=== PATIENT | male | born 1940 | race Caucasian/White ===

== ENCOUNTER 2016-04-22 09:10 | Emergency (ER) | payer MEDICARE ==
[~2016-04-22] VITALS: Ht 175.3 cm; Wt 85.9 kg
[~2016-04-22 09:10] MED LIST: ASPI-973 PO; ATEN100T PO; ATOR40TA69 PO; CHOL200047 PO; FOLI1TAB18 PO; GABA600T2 PO; HYDR-4003 PO; LISI40TA PO; OMEG-38 PO; WARF4TAB6 PO
[2016-04-22 09:20] VITALS: BP 117/59; PULSE 66; RESP 16; O2SAT 96
[2016-04-22] MEDS ORDERED: 0.9% Sodium Chloride 1,000 ML IV ONE (09:31)
--- NOTE | 2016-04-22 09:36 | ED.REPORT ---
HPI-General Illness Date of Service Apr 22, 2016 ED Provider: Ana Jones MD 76 year old male with a hx of HTN, Afib, hyperlipidemia and diabetes presents to the ED from urgent care due to hypotension and Afib noted at urgent care. The patient was seen at urgent care due to abd pain, urinary hesitancy and dysuria for 2 days. He also reports decreased voiding over the last 4 days. He has mild abd pain in the groin area. While at urgent care this morning the patient was noted to be hypotensive (80/40) in Afib and was subsequently referred to the ED. Three months ago the patient was seen for Afib and cardioverted. He was then seen last month and was noted to be in NSR. In the last month he has had his Amlodipine increased from 5mg daily to 5mg twice daily due to uncontrolled hypertension. Pt has no history of BPH. PCP: Dr. Peace Nursing Notes Stated Complaint: HYPOTENSION Chief Complaint: Male Abdominal Pain Nursing Notes Reviewed: Yes Allergies: Coded Allergies: rosuvastatin (Verified Adverse Reaction, Intermediate, MUSCLE PAIN, 04/22/16 ) Scheduled Aspirin (Aspirin) 81 Mg Tablet 81 MG PO DAILY Atenolol (Atenolol) 100 Mg Tablet 100 MG PO DAILY Atorvastatin Calcium (Atorvastatin Calcium) 40 Mg Tablet 80 MG PO DAILY Cholecalciferol (Vitamin D3) (Vitamin D3) 2,000 Unit Capsule 2,000 UNIT PO DAILY Ciprofloxacin (Cipro) 500 Mg Tablet 500 MG PO BID Folic Acid (Folic Acid) 1 Mg Tablet 1 MG PO DAILY Gabapentin (Gabapentin) 600 Mg Tablet 600 MG PO TID [place]-3/Dha/Epa/Fish Oil (Fish Oil 1,000 mg Softgel) 1 Each Capsule 1 EACH PO DAILY Warfarin Sodium (Warfarin Sodium) 4 Mg Tablet 4 MG PO ,,,,, Warfarin Sodium (Warfarin Sodium) 4 Mg Tablet 2 MG PO WEDNESDAYS Scheduled PRN Hydrocodone-Acetaminophen 5-325 mg (Hydrocodone-Acetaminophen 5-325 mg) 1 Each Tablet 0.5-1 TABLET PO Q12H PRN PRN For Pain Lisinopril (Lisinopril) 40 Mg Tablet 40 MG PO HS PRN PRN HYPERtension General Time Seen by MD: 09:31 Chief Complaint Abdominal pain Hx Obtained From: Patient Arrived By: Walk-in Onset Occurred: Onset unknown Symptom Duration: Duration unknown Location: : Abdomen Quality: Painful Severity: Current: Mild Severity: Maximum: Mild Recent Healthcare: Recent doctor visit Past Medical History Past Medical History Melanoma, removed 12 years ago Aflutter Essential Hypertension Bilateral Carotid Bruits Diabetes Type II H/O Aortic Valve Replacement Neuropathy Hyperlipidemia Hypertension Reports: Coronary artery disease, Hyperlipidemia, Hypertension Reports: Atrial fibrillation Past Surgical History coronary artery bypass surgery x4 and aortic valve replacement in 2000. Family History noncontributory Smoking History Former Smoker Social History Alcohol Use: 1-3 per day Drug Use: Denies drug use Other Social History: Good social support, , Local resident Ambulatory Status Independent Review of Systems Full Review of Systems Constitutional: Denies: Fever Respiratory: Denies: Shortness of breath Cardiovascular: Denies: Chest pain, Palpitations GI: Reports: Abdominal pain Male: Reports Dysuria Complete sys rev & neg: except as marked. Physical Exam Bedside US: Post void residual is minimal 10-20cc. Vital Signs Vital Signs Date Time Temp Pulse Resp B/P Pulse Ox O2 Delivery O2 Flow Rate FiO2 04/22/16 13:27 18 125/64 98 Room Air 04/22/16 09:20 37.8 66 16 117/59 96 Room Air Initial VS: Reviewed General/Constitutional: Well-developed, Well-nourished Head / Eyes: Atraumatic, Normocephalic, PERRL ENT: Mucous membranes moist, Conjunctiva normal, No scleral icterus Neck: Supple, Full range of motion Extremities: Vascular intact, Neuro intact, No swelling (No edema), No tenderness Skin: Warm, Dry, No cyanosis Neurologic: Alert, Oriented, Nonfocal Psychiatric: Mood/affect normal, Behavior normal, Normal thought content General/Constitutional: Awake, Alert, Cooperative Respiratory / Chest: Breath sounds NL, Breath sounds = bilat, No respiratory distress, No rales, No rhonchi, No wheezing Cardiovascular: Heart rate NL, Regular rhythm, Heart sounds NL, Cap refill not delayed, Peripheral circulation NL Abdomen: Soft, Non-tender Neurologic: Oriented X3, Speech NL, No motor deficits cognitively intact. Interpretation & Diagnostics Lab Results Interpretation Result Diagram: 04/22/16 0946 04/22/16 0946 Test 04/22/16 09:46 White Blood Count 17.8th/mm3 (3.8-10.1) Red Blood Count 4.93mil/mm3 (4.40-5.80) Hemoglobin 15.5g/dL (13.8-17.2) Hematocrit 46.5% (41.0-50.0) Mean Corpuscular Volume 94.3fL (81-100) Mean Corpuscular Hemoglobin 31.4pg (27.0-35.0) Mean Corpuscular Hemoglobin Concent 33.3% (32.0-37.0) Red Cell Distribution Width 13.1% (12.3-15.4) Platelet Count 143bil/L (150-400) Neutrophils (%) (Auto) 81.3% (40-74) Lymphocytes (%) (Auto) 8.0% (14-46) Monocytes (%) (Auto) 10.3% (4-12) Eosinophils (%) (Auto) 0% (0-5) Basophils (%) (Auto) 0.2% (0-3) Prothrombin Time 22.1sec (8.1-12.5) Prothromb Time International Ratio 2.04ratio Hold Urine Received (Received) Sodium Level 138mEq/L (134-144) Potassium Level 3.6mEq/L (3.5-5.2) Chloride Level 96mEq/L (97-108) Carbon Dioxide Level 30mmol/L (18-29) Blood Urea Nitrogen 38mg/dL (8-27) Creatinine 1.55mg/dL (0.76-1.27) Estimat Glomerular Filtration Rate 46mL/min (>59) Glucose Level 161mg/dL (60-99) Calcium Level 9.5mg/dL (8.5-10.1) Magnesium Level 2.1mg/dL (1.6-2.6) Total Bilirubin 0.9mg/dL (0.0-1.2) Aspartate Amino Transf (AST/SGOT) 27U/L (0-50) Alanine Aminotransferase (ALT/SGPT) 32U/L (0-44) Alkaline Phosphatase 73U/L (25-160) Troponin T < 0.010ug/L (0.0-0.011) Total Protein 7.3g/dL (6.4-8.4) Albumin 3.9g/dL (3.4-5.0) General Lab Results Interp 1: Labs reviewed ECG Interpretation ECG Interpretation: Atrial fibrillation with a rate of 89. Otherwise normal. Time: 09:46 Interpreted by: ED physician X-Ray Chest Interpretation Chest Xray Interpretation: IMPRESSION: Bibasilar scars or atelectasis. Dictated by: Salvador Nicole M.D. on 04/22/2016 at 10:18 View: Portable, 1 view Interpretation / Wet Read by: Interpret - Radiologist Re-Eval/Medical Decision Med Decision/Clinical Course 12:00 reevaluated. Patient is up and quite literally doing laps around the emergency department. Labs reveal elevated white count strong suspicion for UTI. No evidence of cardiac events or pneumonia. We will start 2 g of IV ceftriaxone. No evidence of persistent hypotension. Suspect that the low blood pressures recorded were result of his medications rather than an indication of sepsis. Time of Eval: 12:10 Re-Evaluation/Progress Note: Pt up and walking around department. Updated pt of labs, ECG and imaging results. Discussed plan for discharge and follow up. All questions addressed. Discharge & Departure Primary Impression: UTI (urinary tract infection) Urinary tract infection type: site unspecified Hematuria presence: without hematuria Qualified Code: N39.0 - Urinary tract infection, site not specified Additional Impression: Hypotension, iatrogenic Ruled Out: Sepsis Disposition: Home Discharge Condition All VS Reviewed: Yes Condition: Improved Patient Instructions: Urinary Tract Infection in Men (ED) Additional Instructions: I'm very glad you came in today. You do have a significant bladder infection but do NOT have any indication of sepsis (bacteria spreading through your blood). You got IV antibiotics to start in the ER but will need another 7 days of Cipro am and pm The cipro prescription was electronically sent to [facility] For the low blood pressure I suspect you are a bit too much blood pressure medication. I want you to STOP the Chlorthalidone but continue all the others. Please take your blood pressure every other day and write down the numbers to review with your primary care doctor in about 2 weeks. Please call to schedule an apt in about 2 weeks. If you are getting worse- fever, nausea, vomiting, increased pain, confusion, almost passing out- please come back. Get better quickly!! Referrals: Demetris Rendon MD (PCP) Wilfrido Peace (Family) Scribe Attestation Portions of this note were transcribed by Danette Yin. I, (Dr. Jones) personally performed the history, physical exam and medical decision-making; I reviewed and confirmed the accuracy of the information in the transcribed note. Signed by: Danette Yin. 04/22/2016, 1126 copies to: Demetris Rendon MD; Wilfrido Peace Shawna L MD Apr 22, 2016 09:36 Brendan Ulloa Apr 22, 2016 10:07 Danette Yin Apr 22, 2016 11:05
[2016-04-22 09:59] LABS: BASOPHILS % (AUTO) 0.2 % (0-3); EOSINOPHILS % (AUTO) 0 % (0-5); MONOCYTES % (AUTO) 10.3 % (4-12); Mean Corpuscular Hemoglobin 31.4 pg (27.0-35.0); Mean Corpuscular Volume 94.3 fL (81-100); NEUTROPHILS % (AUTO) 81.3 % (40-74); Platelet Count 143 bil/L (150-400)
[2016-04-22 10:19] LABS: INR 2.04 ratio
--- NOTE | 2016-04-22 10:20 | DRSVH ---
PROCEDURE: X-RAY CHEST ONE VIEW, PORTABLE ([id number]) INDICATIONS: 76-year-old man with recurrent a fib. TECHNIQUE: One view of the chest was acquired. COMPARISON: [facility], CR, XR CHEST 1VW (PORTABLE), 10/25/2015, 10:33. FINDINGS: Surgical changes and devices: Sternotomy and CABG. Lungs and pleura: Bibasilar scars or atelectasis. No pleural effusions or pneumothorax. Mediastinum: Mediastinal contours appear normal. Heart size is normal. Bones and chest wall: No suspicious bony lesions. Overlying soft tissues appear unremarkable. IMPRESSION: Bibasilar scars or atelectasis. Dictated by: Salvador Nicole M.D. on 04/22/2016 at 10:18 Approved by: Salvador Nicole M.D. on 04/22/2016 at 10:18
[2016-04-22 10:39] LABS: Magnesium 2.1 mg/dL (1.6-2.6)
[2016-04-22 10:40] LABS: TROPONIN T < 0.010 ug/L (0.0-0.011)
[2016-04-22] MEDS ORDERED: cefTRIAXone Inj 2,000 MG in IV Premix 1 EACH IV ONE (12:15)
[2016-04-22] MEDS ORDERED: CIPR-231 PO (12:56)
[2016-04-22 13:27] VITALS: BP 125/64; RESP 18; O2SAT 98
== END 2016-04-22 13:28 | disposition home or self-care (01) ==
LOC: SED 09:10
DX: N39.0 Urinary tract infection, site not specified (principal); I95.89 Other hypotension; I25.10 Atherosclerotic heart disease of native coronary artery without angina pectoris; E11.40 Type 2 diabetes mellitus with diabetic neuropathy, unspecified; I10 Essential (primary) hypertension; E78.5 Hyperlipidemia, unspecified; Z85.820 Personal history of malignant melanoma of skin; Z87.891 Personal history of nicotine dependence; Z79.82 Long term (current) use of aspirin; Z79.01 Long term (current) use of anticoagulants; Z88.8 Allergy status to other drugs, medicaments and biological substances
CPT/HCPCS: 36415; 71010; 80053; 81002; 83735; 84484; 85025; 85610; 93005; 96361; 96365; 99285; G0463; J0696; J7030

== ENCOUNTER 2016-05-07 11:14 | Inpatient (IN) | payer MEDICARE ==
[~2016-05-07] VITALS: Ht 175.3 cm; Wt 83.8 kg
[2016-05-07] VITALS (9 sets, daily range): BP systolic 86–137; BP diastolic 43–61; PULSE 60–89; RESP 14–18; O2SAT 93–97
[~2016-05-07 11:14] MED LIST changes: +CIPR-231 PO
--- NOTE | 2016-05-07 11:43 | ED.REPORT ---
HPI-General Illness Date of Service May 07, 2016 ED Provider: Pa Novoa DO Patient is a 76 year old male on Warfarin who presents to the ED from urgent care complaining of lower abdominal pain onset 4 days ago. Associated symptoms include weakness, diarrhea (x4 a day, since starting abx), fever, cough. He denies testicular swelling, penile drainage, melena, hematochezia, runny nose, dysuria, or any other symptoms. He finished Cipro for a UTI on Wednesday night. Nursing Notes Stated Complaint: REFERRAL FROM CLINICS Chief Complaint: General Complaint Nursing Notes Reviewed: Yes Allergies: Coded Allergies: rosuvastatin (Verified Adverse Reaction, Intermediate, MUSCLE PAIN, 04/22/16 ) Scheduled Aspirin (Aspirin) 81 Mg Tablet 81 MG PO DAILY Atenolol (Atenolol) 100 Mg Tablet 100 MG PO DAILY Atorvastatin Calcium (Atorvastatin Calcium) 40 Mg Tablet 80 MG PO DAILY Cholecalciferol (Vitamin D3) (Vitamin D3) 2,000 Unit Capsule 2,000 UNIT PO DAILY Ciprofloxacin (Cipro) 500 Mg Tablet 500 MG PO BID Folic Acid (Folic Acid) 1 Mg Tablet 1 MG PO DAILY Gabapentin (Gabapentin) 600 Mg Tablet 600 MG PO TID [place]-3/Dha/Epa/Fish Oil (Fish Oil 1,000 mg Softgel) 1 Each Capsule 1 EACH PO DAILY Warfarin Sodium (Warfarin Sodium) 4 Mg Tablet 4 MG PO ,,,,, Warfarin Sodium (Warfarin Sodium) 4 Mg Tablet 2 MG PO WEDNESDAYS Scheduled PRN Hydrocodone-Acetaminophen 5-325 mg (Hydrocodone-Acetaminophen 5-325 mg) 1 Each Tablet 0.5-1 TABLET PO Q12H PRN PRN For Pain Lisinopril (Lisinopril) 40 Mg Tablet 40 MG PO HS PRN PRN HYPERtension General Time Seen by MD: 11:38 Chief Complaint Abdominal pain Hx Obtained From: Patient Arrived By: Walk-in Recent Healthcare: Recent doctor visit Past Medical History Past Medical History Melanoma, removed 12 years ago Aflutter Essential Hypertension Bilateral Carotid Bruits H/O Aortic Valve Replacement Neuropathy Hyperlipidemia Hypertension Reports: Coronary artery disease, Hyperlipidemia, Hypertension Reports: Atrial fibrillation Past Surgical History coronary artery bypass surgery x4 and aortic valve replacement in 1999. Family History noncontributory Smoking History Former Smoker Social History Alcohol Use: 1-3 per day Drug Use: Denies drug use Other Social History: Good social support, , Local resident Ambulatory Status Independent Review of Systems Full Review of Systems Constitutional: Reports: Fever, Malaise, Weakness - generalized Respiratory: Reports: Non-productive cough GI: Reports: Abdominal pain, Diarrhea, Denies: Hematochezia, Melena Male: Denies Dysuria, Denies Penile discharge, Denies Testicular swelling Allergy / Immune: Denies: Rhinorrhea Complete sys rev & neg: except as marked. Physical Exam Vital Signs Vital Signs Date Time Temp Pulse Resp B/P Pulse Ox O2 Delivery O2 Flow Rate FiO2 05/07/16 14:41 39.4 89 137/55 95 Room Air 05/07/16 12:32 74 114/52 97 Room Air 05/07/16 11:18 38.4 77 15 130/61 95 Initial VS: Reviewed Head / Eyes: Atraumatic, Normocephalic Neck: Full range of motion Respiratory: No respiratory distress Skin: Warm, Dry Neurologic: Alert, Oriented, Nonfocal Psychiatric: Mood/affect normal, Behavior normal, Normal thought content General/Constitutional: Awake, Alert, Well appearing, Well developed Febrile Tenderness/Guarding/Rebound: Positive: Tender LLQ... (Mild) Mild rebound Back: No CVA tenderness Interpretation & Diagnostics Lab Results Interpretation Test 05/07/16 15:13 Hold Urine Received (Received) CT Abd / Pelvis Interpretation IMPRESSION: 1. Short segment, circumferential wall thickening with adjacent mesenteric inflammation involving the distal transverse colon. Findings compatible with nonspecific colitis. Differential diagnosis includes infectious/inflammatory, ischemic and neoplastic etiologies. 2. A few, very small, locules of air in the liver which may localize to the biliary or portal venous systems. 3. Small hiatal hernia. 4. Findings telephoned to Dr. Pa Novoa on 05/07/2016 at 1417 hrs. Dictated by: Vy Menendez MD, PhD on 05/07/2016 at 14:21 Approved by: Vy Menendez MD, PhD on 05/07/2016 at 14:21 Study type: Abdominal CT IV contrast Interpretation / Wet Read by: Interpret - Radiologist Re-Eval/Medical Decision Med Decision/Clinical Course Sepsis and colitis with air in the liver, surgery is consulted for this, IV Zosyn and oral vancomycin will be given. Given the fever leukocytosis and findings on CAT scan he will be admitted. Stool PCR was ordered. Time of Eval: 15:00 Re-Evaluation/Progress Note: Discussed desire fro admission. Patient understands and agrees with plan. All questions addressed at this time. Consultation #1: Referral / Consult Name: Nicholas Trejo MD Consulted With: Surgeon Call Returned at: 14:51 Malware Analyst: Will see patient Note: Discussed patient's case. Will see patient and consult. Consultation #2: Referral / Consult Name: Hali Watson MD Consulted With: Hospitalist Call Returned at: 15:13 Malware Analyst: Will see patient, Agrees with eval, Agrees with plan, Accepts admit Note: Discussed patient's case. Accepts admit. Counseled Regarding: Diagnosis, Lab results, Need for admission Discharge & Departure Primary Impression: Sepsis Additional Impression: Colitis Disposition: ADMITTED TO HOSPITAL Referrals: Demetris Rendon MD (PCP) Wilfrido Peace (Family) Scribe Attestation Portions of this note were transcribed by Janell Florentino. I, Dr. Novoa personally performed the history, physical exam and medical decision-making; I reviewed and confirmed the accuracy of the information in the transcribed note. Signed by: Janell Florentino 05/07/16, 1518 copies to: Demetris Rendon MD, Timothy S DO May 07, 2016 11:43 JANELL FLORENTINO May 07, 2016 11:57
[2016-05-07] MEDS ORDERED: 0.9% Sodium Chloride 1,000 ML IV ONE (11:55)
--- NOTE | 2016-05-07 14:23 | DRSVH ---
PROCEDURE: CT ABDOMEN AND PELVIS WITH CONTRAST ([id number]) INDICATIONS: llq pain, fever, wbc 17k TECHNIQUE: After the administration of intravenous contrast, 5 mm thick sections acquired from the diaphragm to the symphysis. 5 mm coronal and sagittal reformats were acquired. For radiation dose reduction, the following was used: automated exposure control, adjustment of mA and/or kV according to patient siz e. COMPARISON: None. FINDINGS: Image quality: Excellent. ABDOMEN: Lung bases: Lung bases are clear. Heart size is normal. Postsurgical changes compatible prior CABG procedure noted. Mitral annulus calcifications are noted. Solid organs: Liver and spleen are normal in size and enhancement. A few, very small, locules of air are noted in the liver (series 2, image 15; series 2, image 10-11. Is not clear whether the air locu les are within the portal venous system or the biliary system. Gallbladder is contracted. Biliary s ystem is non dilated. Pancreas enhances normally. No adrenal nodules. Kidneys demonstrate normal s ize and enhancement, without hydronephrosis. Small right renal cyst is noted. Peritoneum and bowel: Small hiatal hernia is noted. Short segment, circumferential wall thickening i nvolving the distal transverse colon mainly proximal to the splenic flexure is noted. Mild stranding is noted in the mesocolon in the region of transverse colon wall thickening. No free fluid or air. Th e appendix is normal. Nodes and vessels: No retroperitoneal or mesenteric adenopathy by size criteria. Aorta and inferior vena cava are normal in size. Scattered atherosclerotic calcifications are noted in the abdominal an d pelvic vasculature. Miscellaneous: No ventral hernias. PELVIS: Genitourinary: Bladder wall thickness is normal. Miscellaneous: No inguinal hernias or adenopathy. Bones: No suspicious bony lesions. No vertebral body compression fractures. IMPRESSION: 1. Short segment, circumferential wall thickening with adjacent mesenteric inflammation involving the distal transverse colon. Findings compatible with nonspecific colitis. Differential diagnosis includ es infectious/inflammatory, ischemic and neoplastic etiologies. 2. A few, very small, locules of air in the liver which may localize to the biliary or portal venous systems. 3. Small hiatal hernia. 4. Findings telephoned to Dr. Pa Novoa on 05/07/2016 at 1417 hrs. Dictated by: Vy Menendez MD, PhD on 05/07/2016 at 14:21 Approved by: Vy Menendez MD, PhD on 05/07/2016 at 14:21
[2016-05-07] MEDS: 0.9% Sodium Chloride 1,000 ML IV SCH ×2 (15:08→15:55)
[2016-05-07] MEDS ORDERED: Vancomycin 125 mg Oral Capsule PO ONE (15:20)
[2016-05-07] MEDS ORDERED: Ondansetron 2 mg/mL 2 mL Inj IVPUSH PRN (15:55)
[2016-05-07] MEDS ORDERED: WARFARIN SODIUM 2 MG PO SCH (16:05)
--- NOTE | 2016-05-07 16:20 | PCM.HPMED ---
Subjective Date of Service May 07, 2016 Primary Provider: Admitting Physician: Primary Care Physician: Demetris Rendon MD Attending Physician: Admit Status: From the Emergency Department, Full Admit, Admit to [facility] Team, Remote Telemetry Chief Complaint: Lower abdominal pain over 4 days. He also has had diarrhea 4 times daily. History of Present Illness: Lower abdominal pain over 4 days. He also has had diarrhea 4 times daily. He was on Cipro antibiotic for urinary tract infection and finishes up recently. He does admit to some fevers and chills. He notes no prior history of GI issues. No history of inflammatory bowel disease. He denies any blood in his stool. He denies any nausea or vomiting. He denies any sick contact exposure. His evaluation apparently in urgent care revealed an elevated white count of about 20,000. He did have a CT scan done in the emergency room here which revealed: Review of Systems: Other review of systems are reviewed and are negative except for as in history of present illness Allergies Coded Allergies: rosuvastatin (Verified Adverse Reaction, Intermediate, MUSCLE PAIN, 04/22/16 ) Home Medications Aspirin (Aspirin) 81 Mg Tablet 81 MG PO DAILY Atenolol (Atenolol) 100 Mg Tablet 100 MG PO DAILY Atorvastatin Calcium (Atorvastatin Calcium) 40 Mg Tablet 80 MG PO DAILY Cholecalciferol (Vitamin D3) (Vitamin D3) 2,000 Unit Capsule 2,000 UNIT PO DAILY Ciprofloxacin (Cipro) 500 Mg Tablet 500 MG PO BID Folic Acid (Folic Acid) 1 Mg Tablet 1 MG PO DAILY Gabapentin (Gabapentin) 600 Mg Tablet 600 MG PO TID [place]-3/Dha/Epa/Fish Oil (Fish Oil 1,000 mg Softgel) 1 Each Capsule 1 EACH PO DAILY Warfarin Sodium (Warfarin Sodium) 4 Mg Tablet 4 MG PO ,,,,,SA Warfarin Sodium (Warfarin Sodium) 4 Mg Tablet 2 MG PO WEDNESDAYS PMH Melanoma, removed 12 years ago Aflutter Essential Hypertension Bilateral Carotid Bruits H/O Aortic Valve Replacement Neuropathy Hyperlipidemia Hypertension Reports: Coronary artery disease, Hyperlipidemia, Hypertension Reports: Atrial fibrillation Surgical History coronary artery bypass surgery x4 and aortic valve replacement in 1999. Family History No history of any GI diseases Social History Hx Alcohol Use: Yes (FEW/DAY) Hx Substance Use: No Smoking Status: Former Smoker Living Arrangement: with Family Exam Vital Signs Vital Sign - Last Date Time Temp Pulse Resp B/P Pulse Ox O2 Delivery O2 Flow Rate FiO2 05/07/16 14:41 39.4 89 137/55 95 Room Air 05/07/16 11:18 15 Exam Constitutional: Elderly man in no acute distress Head: Normocephalic atraumatic Neck: No adenopathy Chest: Clear to auscultation Cor: Irregular regular rate and rhythm S1-S2 Abdomen: Slightly distended, soft mild diffuse tenderness up to doing a lower quadrants no rebound no guarding Extremity exam: No pedal edema Skin: No rashes Psych: Mood and affect appropriate Neuro: Alert and oriented 3, motor strength is intact bilaterally Lab and Diagnostics Labs Ordered and pending at the time of this dictation X-Rays, CTs and MRIs PROCEDURE: CT ABDOMEN AND PELVIS WITH CONTRAST ([id number]) INDICATIONS: llq pain, fever, wbc 17k TECHNIQUE: After the administration of intravenous contrast, 5 mm thick sections acquired from the diaphragm to the symphysis. 5 mm coronal and sagittal reformats were acquired. For radiation dose reduction, the following was used: automated exposure control, adjustment of mA and/or kV according to patient size. COMPARISON: None. FINDINGS: Image quality: Excellent. ABDOMEN: Lung bases: Lung bases are clear. Heart size is normal. Postsurgical changes compatible prior CABG procedure noted. Mitral annulus calcifications are noted. Solid organs: Liver and spleen are normal in size and enhancement. A few, very small, locules of air are noted in the liver (series 2, image 15; series 2, image 10-11. Is not clear whether the air locules are within the portal venous system or the biliary system. Gallbladder is contracted. Biliary system is non dilated. Pancreas enhances normally. No adrenal nodules. Kidneys demonstrate normal size and enhancement, without hydronephrosis. Small right renal cyst is noted. Peritoneum and bowel: Small hiatal hernia is noted. Short segment, circumferential wall thickening involving the distal transverse colon mainly proximal to the splenic flexure is noted. Mild stranding is noted in the mesocolon in the region of transverse colon wall thickening. No free fluid or air. The appendix is normal. Nodes and vessels: No retroperitoneal or mesenteric adenopathy by size criteria. Aorta and inferior vena cava are normal in size. Scattered atherosclerotic calcifications are noted in the abdominal and pelvic vasculature. Miscellaneous: No ventral hernias. PELVIS: Genitourinary: Bladder wall thickness is normal. Miscellaneous: No inguinal hernias or adenopathy. Bones: No suspicious bony lesions. No vertebral body compression fractures. IMPRESSION: 1. Short segment, circumferential wall thickening with adjacent mesenteric inflammation involving the distal transverse colon. Findings compatible with nonspecific colitis. Differential diagnosis includes infectious/inflammatory, ischemic and neoplastic etiologies. 2. A few, very small, locules of air in the liver which may localize to the biliary or portal venous systems. 3. Small hiatal hernia. 4. Findings telephoned to Dr. Pa Novoa on 05/07/2016 at 1417 hrs. Dictated by: Vy Menendez MD, PhD on 05/07/2016 at 14:21 Approved by: Vy Menendez MD, PhD on 05/07/2016 at 14:21 12-lead ECG Pending at the time of this dictation Assessment & Plan # Acute abdominal pain with diarrhea and colitis on CT scan, present on admission, acute - Does meet criteria for sepsis with elevated white count and febrile - We will treat with IV Zosyn - Check stool studies along with stool PCR is may be C. difficile given recent antibiotic treatment - General surgery also consult and given the findings of the biliary tree. Dr. Trejo felt that that was most likely nonsignificant findings and recommended treating with antibiotics and checking stool studies. - Await blood work results will also check a lactic acid. # History of A. fib flutter Placed on monitor Continue with warfarin and pharmacy to monitor #. Hypertension, chronic, present on admission We will hold lisinopril for now # DVT prophylaxis Patient is on oral Coumadin # CODE STATUS Patient is full code Pain Evaluation: Adequate Pain Control VTE Prophylaxis: Sub-Q Enoxaparin Resuscitation Status: CPR: Attempt Resuscitation Time spent 60 minutes Hali Watson MD May 07, 2016 16:20
[2016-05-07] MEDS ORDERED: HYDROcodone-APAP 5-325 mg Tablet PO PRN (16:40)
[2016-05-07] MEDS ORDERED: KLO5T PO (16:57)
[2016-05-07] MEDS ORDERED: AMLO5TAB2 PO (16:57)
[2016-05-07 17:02] LABS: APPEARANCE,URINE CLEAR (CLEAR,HAZY); COLOR,URINE YELLOW (YELLOW); PH,URINE 5.5 (5.0-8.0)
[2016-05-07 17:03] LABS: OCCULT BLOOD,URINE MODERATE (NEGATIVE); UROBILINOGEN,URINE NORMAL (NORMAL)
--- NOTE | 2016-05-07 17:15 | NUR ---
Admit Pt admitted to floor. Pt transferred from wheelchair to bed. A&0x3, currently denies pain (recently received Hudson). Will continue to monitor. Addendum: 05/07/16 at 1924 by PAM BAKER RN Unable to finish admit assessments. Pass off given to [facility] shift lead.
--- NOTE | 2016-05-07 18:05 | CONS ---
[address] [address] CONSULTATION REPORT PATIENT: CHACE NAPIER : 1940 MR#: [id number] ADMIT: 05/07/2016 JOB ID: [id number] DATE OF SERVICE: 05/07/2016 CHIEF COMPLAINT/IDENTIFICATION: Dr. Novoa has asked me to see this 76-year-old man regarding question of portal venous gas. HISTORY OF PRESENT ILLNESS: The patient presented with shaking chills and symptoms including weakness, diarrhea, fever, and cough. He had an outpatient CT scan at [facility] and was sent to the emergency department due to a question of portal venous gas. He has no history of chronic GI complaints but has been on ciprofloxacin recently for a UTI. He denies chronic abdominal pain or for any significant GI symptomatology. PAST MEDICAL HISTORY: History of melanoma, atrial fibrillation, hypertension. Known carotid artery disease with plans for a carotid endarterectomy with his blood pressure is well controlled. He is status post aortic valve replacement. History of hypertension. Coronary artery bypass x4. Aortic valve replacement in 1999. MEDICATIONS: Including aspirin, atenolol, atorvastatin, ciprofloxacin, folic acid, gabapentin, warfarin. ALLERGIES: ROSUVASTATIN. SOCIAL HISTORY: Positive daily alcohol. Negative current tobacco use, ex-smoker stopped in 1981. Lives with family. REVIEW OF SYSTEMS: Per admission history and physical. FAMILY HISTORY: Per admission history and physical. PHYSICAL EXAMINATION: Elderly man appearing quite active and in good spirits. He is shivering a bit. His temperature is 39.4, pulse is 89. His blood pressure is 137/55. He appears nontoxic. Abdomen is tender in the mid abdomen to deep palpation. No peritoneal signs. LABORATORY DATA: His white count by report is elevated, though I do not have these as the labs were done at Urgent Care. IMAGING: I have had the opportunity to review the images and the report. I concur that there is what appears to be thickened bowel in the distal transverse colon, and I also think that the cecum may be thickened. There is the tiniest bit of gas in what is presumably the portal venous system as the patient has an intact gallbladder. IMPRESSION AND PLAN: A 76-year-old man with multiple medical comorbidities who presents with fever and infectious symptoms with colon abnormalities consistent with C. difficile colitis or some other type of colitis. I suspect that the most likely diagnosis is C. difficile colitis related to his recent use ciprofloxacin for a urinary tract infection. Regarding this issue of gas in the liver, I do not think this would affect how he is managed. He does not have an acute surgical abdomen and there is no indication for surgery. He should be treated for whatever his primary process is, with the realization that if he initially responds but then seems to deteriorate with a process that is consistent with infectious disease, the consideration of a delayed liver abscess needs to be taken into account. However, at this point I would not manage him any differently or image him any differently down the road based on this finding of a few small bubbles of gas in the liver. I will see him again in followup in two days, but will not ask anybody else from the department to see him tomorrow.
[2016-05-07] MEDS: Piperacillin-Tazo 3.375 Gm Inj 3.375 GM in Dextrose 5% Minibag Plus 50 ML IV SCH (18:20)
[2016-05-07 21:24] LABS: BASOPHILS % (AUTO) 0.1 % (0-3); EOSINOPHILS % (AUTO) 0.2 % (0-5); MONOCYTES % (AUTO) 9.1 % (4-12); Mean Corpuscular Hemoglobin 30.6 pg (27.0-35.0); Mean Corpuscular Volume 94.4 fL (81-100); NEUTROPHILS % (AUTO) 79.8 % (40-74); Platelet Count 174 bil/L (150-400)
[2016-05-07 21:42] LABS: INR 1.58 ratio
--- NOTE | 2016-05-07 22:01 | NUR ---
Admission Pt able to provided answer for H&P. Oriented to room and use of call light. Med reconciliation done by nurse earlier.
[2016-05-07 22:10] LABS: TROPONIN T 0.01 ug/L (0.0-0.011)
--- NOTE | 2016-05-07 22:29 | PCM.CONPHA ---
Subjective Date of Service: May 07, 2016 Lower abdominal pain over 4 days. He also has had diarrhea 4 times daily. Reason for Pharmacy Consult: Anticoagulation Management Objective Vital Signs Date Time Temp Pulse Resp B/P Pulse Ox O2 Delivery O2 Flow Rate FiO2 05/07/16 22:06 64 05/07/16 22:03 67 05/07/16 20:07 80 99/52 05/07/16 19:45 37.4 60 18 86/43 93 Room Air 05/07/16 17:57 82 05/07/16 17:28 38.8 82 14 120/48 95 Room Air 05/07/16 14:41 39.4 89 137/55 95 Room Air 05/07/16 12:32 74 114/52 97 Room Air 05/07/16 11:18 38.4 77 15 130/61 95 Weight (Kilograms): 79.09 Height (Feet): 5 Height (Inches): 9.00 Test 05/07/16 15:13 05/07/16 16:17 05/07/16 21:13 Hold Urine Received (Received) Urine Color Yellow (YELLOW) Urine Appearance Clear (CLEAR,HAZY) Urine pH 5.5 (5.0-8.0) Urine Specific [place] 1.010 (1.003-1.035) Urine Protein Negativemg/dL (NEG,TRACE) Urine Glucose (UA) Negativemg/dL (NEGATIVE) Urine Ketones Negativemg/dL (NEGATIVE) Urine Occult Blood Moderate (NEGATIVE) Urine Nitrite Negative (NEGATIVE) Urine Bilirubin Negative (NEGATIVE) Urine Urobilinogen Normalmg/dL (NORMAL) Urine Leukocyte Esterase Negative (NEGATIVE) Urine RBC 0-2/hpf (0-2) Urine WBC 0-5/hpf (0-5) Urine Epithelial Cells Few/hpf (NONE-MOD) Urine Crystals None seen (NONE SEEN) Urine Bacteria Few/hpf (NONE-FEW) Urine Hyaline Casts None/lpf (NONE) Urine Granular Casts None seen (NONE SEEN) Urine Waxy Casts None seen (NONE SEEN) Urine Red Blood Cell Casts None seen (NONE SEEN) Urine White Blood Cell Casts None seen (NONE SEEN) Urine Mucus None seen (None Seen) Urine Trichomonas None seen (NONE SEEN) Urine Yeast None (NONE SEEN) Urinalysis Comment None Urine Culture Reflexed Not indicated White Blood Count 14.4th/mm3 (3.8-10.1) Red Blood Count 4.44mil/mm3 (4.40-5.80) Hemoglobin 13.6g/dL (13.8-17.2) Hematocrit 41.9% (41.0-50.0) Mean Corpuscular Volume 94.4fL (81-100) Mean Corpuscular Hemoglobin 30.6pg (27.0-35.0) Mean Corpuscular Hemoglobin Concent 32.5% (32.0-37.0) Red Cell Distribution Width 13.4% (12.3-15.4) Platelet Count 174bil/L (150-400) Neutrophils (%) (Auto) 79.8% (40-74) Lymphocytes (%) (Auto) 10.4% (14-46) Monocytes (%) (Auto) 9.1% (4-12) Eosinophils (%) (Auto) 0.2% (0-5) Basophils (%) (Auto) 0.1% (0-3) Prothrombin Time 17.1sec (8.1-12.5) Prothromb Time International Ratio 1.58ratio Sodium Level 135mEq/L (134-144) Potassium Level 3.7mEq/L (3.5-5.2) Chloride Level 98mEq/L (97-108) Carbon Dioxide Level 24mmol/L (18-29) Blood Urea Nitrogen 20mg/dL (8-27) Creatinine 1.06mg/dL (0.76-1.27) Estimat Glomerular Filtration Rate 72mL/min (>59) Glucose Level 156mg/dL (60-99) Lactic Acid Level 1.7mmol/L (0.4-2.0) Calcium Level 8.3mg/dL (8.5-10.1) Total Bilirubin 0.8mg/dL (0.0-1.2) Aspartate Amino Transf (AST/SGOT) 29U/L (0-50) Alanine Aminotransferase (ALT/SGPT) 45U/L (0-44) Alkaline Phosphatase 78U/L (25-160) Troponin T 0.010ug/L (0.0-0.011) Total Protein 6.7g/dL (6.4-8.4) Albumin 3.6g/dL (3.4-5.0) Assessment/Plan Assessment/Plan Warfarin per Rx Indication: A-Fib INR Goal: 2-3 INR today (drawn at 5): 1.58 No dose given as pt had already taken today's dose prior to admission Daily INR ordered Kei Gunderson PharmD May 07, 2016 22:29
[2016-05-08] VITALS (7 sets, daily range): BP systolic 95–144; BP diastolic 48–68; PULSE 82–98; RESP 16–20; O2SAT 94–97
[2016-05-08] MEDS: Piperacillin-Tazo 3.375 Gm Inj 3.375 GM in Dextrose 5% Minibag Plus 50 ML IV SCH ×3 (00:45→17:19)
[2016-05-08] MEDS: 0.9% Sodium Chloride 1,000 ML IV SCH ×6 (00:45→20:45)
--- NOTE | 2016-05-08 01:00 | NUR ---
Transfer Pt transferred to room with 1028 with all belongings, charts and meds. Report given to [facility] RN. Pt made aware of need to transfer with understanding noted.
--- NOTE | 2016-05-08 04:57 | NUR ---
activity pt has been sleeping since transferred to [facility]. he has no complaints of nausea or pain at this time. "I just want to be left to sleep until lunch". VSS and afebrile. stool sample still needed but he has had no BM yet. care continues.
[2016-05-08] MEDS: Omega-3 Fatty Acids 1,000 mg Capsule PO SCH (08:30)
[2016-05-08 09:54] LABS: BASOPHILS % (AUTO) 0.1 % (0-3); EOSINOPHILS % (AUTO) 0.3 % (0-5); MONOCYTES % (AUTO) 7.4 % (4-12); Mean Corpuscular Hemoglobin 30.8 pg (27.0-35.0); Mean Corpuscular Volume 94.1 fL (81-100); NEUTROPHILS % (AUTO) 83.2 % (40-74); Platelet Count 143 bil/L (150-400)
[2016-05-08 10:08] LABS: INR 1.46 ratio
[2016-05-08 10:32] LABS: TROPONIN T < 0.010 ug/L (0.0-0.011)
[2016-05-08] MEDS: Vancomycin 125 mg Oral Capsule PO SCH ×2 (15:22→21:01)
--- NOTE | 2016-05-08 18:35 | PCM.PNMED ---
Subjective Date of Service May 08, 2016 Subjective Patient was examined at bedside today. Patient denies any chest pain, shortness of breath, nausea, vomiting. Patient is currently doing well and complains only of abdominal pain and diarrhea. Exam Vital Signs Vital Sign - Last Date Time Temp Pulse Resp B/P Pulse Ox O2 Delivery O2 Flow Rate FiO2 05/08/16 14:38 38.6 90 16 123/61 95 Room Air Intake and Output 05/07/16 05/07/16 05/08/16 Cumulative From/Thru 15:00 23:00 07:00 05/07/16 11:18 - 05/08/16 06:55 Intake Total 1000 ml 0 ml 1000 ml Balance 1000 ml 0 ml 1000 ml Intake Oral 0 ml 0 ml IV Total 1000 ml 1000 ml # Voids 4 4 # Bowel Movements 0 0 Exam Physical Exam: GEN: Patient was awake, alert, responding appropriately to questions HEENT: PERRLA, EOMI, Neck soft supple, trachea midline, nomocephalic/atraumatic CV: +S1/S2, RRR, positive murmur secondary to valve replacement Respiratory: CTAB, no wheezes, rales, rhonchi GI: +bowel sounds x4, soft, compressible, mild TTP EXT: no c/c/e Neuro: CN II-XII grossly intact Psych: mood and affect were appropriate IVs and Medications Medications Reviewed: Medications were reviewed in detail Medications Current Medications Sodium Chloride 1,000 ml @ 100 mls/hr Q10H IV Last administered on 05/08/16t 11 :10; Admin Dose 100 MLS/HR; Start 05/07/16 at 14:45 Enoxaparin Sodium 40 mg 40 mg DAILY SUBQ; Start 05/07/16 at 15:55 Sodium Chloride 1,000 ml @ 125 mls/hr Q8H IV Last administered on 05/08/16t 17: 19; Admin Dose 125 MLS/HR; Start 05/07/16 at 15:55 Ondansetron HCl 4 to 8 mg Q4H PRN IVPUSH; Start 05/07/16 at 15:55 Acetaminophen 650 mg Q4H PRN PO; Start 05/07/16 at 15:55 Pharmacy Consult 1 ea DAILY@17 XX; Start 05/07/16 at 17:00 Aspirin 81 mg DAILY PO; Start 05/08/16 at 08:30; Stop 05/08/16 at 12:27; Status DC Atorvastatin Calcium 80 mg DAILY PO; Start 05/08/16 at 08:30; Stop 05/08/16 at 12:26; Status DC Folic Acid 1 mg DAILY PO Last administered on 05/08/16 10:24; Admin Dose 1 MG; Start 05/08/16 at 08:30 Acetaminophen/ Hydrocodone Bitart 1 tablet Q4HWA PRN PO Last administered on 17:02; Admin Dose 1 TABLET; Start 05/07/16 at 16:40 Atenolol 100 mg DAILY PO Last administered on 05/08/16 11:09; Admin Dose 100 MG ; Start 05/08/16 at 08:30 Gabapentin 600 mg TID PO Last administered on 05/08/16 15:23; Admin Dose 600 MG ; Start 05/07/16 at 20:30 Non-Formulary Medication 1 each DAILY PO; Start 05/08/16 at 08:30; Status UNV Non-Formulary Medication 2 mg WEDNESDAYS PO; Start 05/07/16 at 16:05; Stop 05/07 at 16:40; Status DC Non-Formulary Medication 4 mg 4 mg JENKINS,M,TU,TH,F,SA PO; Start 05/07/16 at 16:05; Stop 05/07/16 at 16:40; Status DC Piperacillin Sod/ Tazobactam Sod/ Dextrose/Water 50 ml @ 12.5 mls/hr Q8H IV Last administered on 05/08/16 17:19; Admin Dose 12.5 MLS/HR; Start 05/07/16 at 16:30 Atorvastatin Calcium 80 mg HS PO; Start 05/08/16 at 21:00 Aspirin 81 mg HS PO; Start 05/08/16 at 21:00 Vancomycin HCl 125 mg Q6 PO Last administered on 05/08/16 15:22; Admin Dose 125 MG; Start 05/08/16 at 14:30; Stop 05/18/16 at 08:31 Lab and Diagnostics Result Diagram: 05/08/1630 05/08/16 0930 X-Rays, CTs and MRIs PROCEDURE: CT ABDOMEN AND PELVIS WITH CONTRAST ([id number]) INDICATIONS: llq pain, fever, wbc 17k TECHNIQUE: After the administration of intravenous contrast, 5 mm thick sections acquired from the diaphragm to the symphysis. 5 mm coronal and sagittal reformats were acquired. For radiation dose reduction, the following was used: automated exposure control, adjustment of mA and/or kV according to patient size. COMPARISON: None. FINDINGS: Image quality: Excellent. ABDOMEN: Lung bases: Lung bases are clear. Heart size is normal. Postsurgical changes compatible prior CABG procedure noted. Mitral annulus calcifications are noted. Solid organs: Liver and spleen are normal in size and enhancement. A few, very small, locules of air are noted in the liver (series 2, image 15; series 2, image 10-11. Is not clear whether the air locules are within the portal venous system or the biliary system. Gallbladder is contracted. Biliary system is non dilated. Pancreas enhances normally. No adrenal nodules. Kidneys demonstrate normal size and enhancement, without hydronephrosis. Small right renal cyst is noted. Peritoneum and bowel: Small hiatal hernia is noted. Short segment, circumferential wall thickening involving the distal transverse colon mainly proximal to the splenic flexure is noted. Mild stranding is noted in the mesocolon in the region of transverse colon wall thickening. No free fluid or air. The appendix is normal. Nodes and vessels: No retroperitoneal or mesenteric adenopathy by size criteria. Aorta and inferior vena cava are normal in size. Scattered atherosclerotic calcifications are noted in the abdominal and pelvic vasculature. Miscellaneous: No ventral hernias. PELVIS: Genitourinary: Bladder wall thickness is normal. Miscellaneous: No inguinal hernias or adenopathy. Bones: No suspicious bony lesions. No vertebral body compression fractures. IMPRESSION: 1. Short segment, circumferential wall thickening with adjacent mesenteric inflammation involving the distal transverse colon. Findings compatible with nonspecific colitis. Differential diagnosis includes infectious/inflammatory, ischemic and neoplastic etiologies. 2. A few, very small, locules of air in the liver which may localize to the biliary or portal venous systems. 3. Small hiatal hernia. 4. Findings telephoned to Dr. Pa Novoa on 05/07/2016 at 1417 hrs. Dictated by: Vy Menendez MD, PhD on 05/07/2016 at 14:21 Approved by: Vy Menendez MD, PhD on 05/07/2016 at 14:21 12-lead ECG Pending at the time of this dictation Assessment & Plan 76-year-old male with acute abdominal pain with diarrhea and colitis on CT scan , present on admission, Sepsis -- Does meet criteria for sepsis with elevated white count and febrile with blood cell count improving 10.8 today yesterday 14.4 -- Continue with IV Zosyn -- Blood cultures negative 1 day -- Stool positive for C. difficile -- General surgery also consult and given the findings of the biliary tree. Dr. Trejo felt that that was most likely nonsignificant findings and recommended treating with antibiotics and checking stool studies. -- Lactic acid within normal limits 1.7 C. difficile most likely secondary to antibiotic use of Cipro as an outpatient -- Vancomycin 125 mg by mouth every 6 hours -- Continue contact precautions -- Continue to monitor for any worsening sepsis History of A. fib flutter --Placed on monitor --Continue with warfarin and pharmacy to monitor Hypertension, chronic, present on admission -- Currently stable blood pressure 123/61 -- Continue to hold lisinopril for now DVT prophylaxis Patient is on oral Coumadin CODE STATUS Patient is full code Disposition: Patient is progressing well. We will continue patient on IV Zosyn for possible infection of the blood. Patient sepsis is most likely secondary to C. difficile patient will continue on oral vancomycin today is day 1 patient will remain on this particular treatment for 10 days. VTE Prophylaxis: Sub-Q Enoxaparin Resuscitation Status: CPR: Attempt Resuscitation Kavita Canales DO May 08, 2016 18:35
--- NOTE | 2016-05-08 20:25 | NUR ---
Febrile/ C Diff/Pain/ nasal congestion Patient febrile today with temp up top 101, pt has nasal congestion noted and post nasal drip. Pt states doesn't feel well overall. Pt diagnosed with Cdiff today, intermittent abd cramping at times accompanied with diarrhea.
--- NOTE | 2016-05-08 22:09 | NUR ---
Blood pressure Pt had a BP of 95/50 at 2100 Reported above finding to MD BRITO requested BP to be retaken at 2200 BP improved to 105/48. HR 83. Will cont to monitor
[2016-05-09] MEDS: 0.9% Sodium Chloride 1,000 ML IV SCH ×3 (00:38→08:22)
[2016-05-09] MEDS: Piperacillin-Tazo 3.375 Gm Inj 3.375 GM in Dextrose 5% Minibag Plus 50 ML IV SCH ×2 (01:13→08:22)
[2016-05-09 01:18] VITALS: BP 106/60; PULSE 77; RESP 20; O2SAT 94
[2016-05-09] MEDS: Vancomycin 125 mg Oral Capsule PO SCH ×2 (02:49→08:27)
[2016-05-09 04:59] VITALS: PULSE 85
[2016-05-09 05:30] VITALS: BP 115/52; PULSE 76; RESP 20; O2SAT 95
[2016-05-09 06:52] LABS: BASOPHILS % (AUTO) 0.1 % (0-3); EOSINOPHILS % (AUTO) 0.7 % (0-5); MONOCYTES % (AUTO) 13.9 % (4-12); Mean Corpuscular Hemoglobin 31.1 pg (27.0-35.0); Mean Corpuscular Volume 94.1 fL (81-100); NEUTROPHILS % (AUTO) 71.6 % (40-74); Platelet Count 122 bil/L (150-400)
[2016-05-09 07:04] LABS: INR 1.46 ratio
[2016-05-09] MEDS: Omega-3 Fatty Acids 1,000 mg Capsule PO SCH (08:27)
[2016-05-09 09:46] VITALS: PULSE 89
[2016-05-09] MEDS ORDERED: ATEN50TA PO (10:39)
[2016-05-09] MEDS ORDERED: VANC125C3 PO ×2 (10:39→11:34)
--- NOTE | 2016-05-09 11:22 | PCM.DIMED ---
Discharge Instructions Date of Service May 09, 2016 Dates of Hospitalization May 07, 2016 at 16:25 Discharge Diagnosis Discharge Diagnosis Sepsis-resolving C. difficile most likely secondary to antibiotic use of Cipro as an outpatient History of A. jessenia flutter Hypertension Medication Instructions Please take only 50 mg of the atenolol daily. Please stop taking amlodipine and lisinopril as her blood pressures have been running low while in the hospital. Continue to monitor your blood pressures at home and if your systolic blood pressure (the top number) is greater than 150 or if your diastolic blood pressure (bottom number) is greater than 90 increase your atenolol back to 100 mg daily. Please follow-up with your primary care physician for further instructions for blood pressure medication management. Test Results Microbiology CAMPYLBACTER SP PCR Final 05/08/16 Not Detected C DIFF TOXIN A AND B BY PCR Final 05/08/16 Organism 1 POS FOR CDIF TOXIN C DIF TOXIN A&B PCR DETECTED TIME CALLED: 917 DATE CALLED: 05/08/16 FLOOR/DOCTOR: TO Gonzalez CALLED BY: LYN PCR testing alone cannot distinquish C. difficile disease from a carrier state, and therefore correlation with clinical findings is required. PLESIOMONAS SHIGELLOIDES PCR Final 05/08/16 Not Detected SALMONELLA SPECIES PCR Final 05/08/16 Not Detected YERSINA ENTEROCOLITICA PCR Final 05/08/16 Not Detected VIBRIO SPECIES Final 05/08/16 Not Detected VIBRIO CHOLERAE PCR Final 05/08/16 Not Detected ECOLI PCR ENTEROAGGREGATIVE Final 05/08/16 Not Detected ECOLI PCR ENTEROTOXIGENIC Final 05/08/16 Not Detected Patient Instructions Follow-up with PCP in: 1 week Kavita Canales DO May 09, 2016 10:42
--- NOTE | 2016-05-09 11:33 | PCM.DC.MED ---
Discharge Summary Date of Service May 09, 2016 Dates of Hospitalization Date of Hospital Admission May 07, 2016 at 16:25 Date of Discharge: May 09, 2016 Providers: Admitting Physician: Hali Watson MD Primary Care Physician: Demetris Rendon MD Attending Physician: Hali Watson MD Diagnosis at Time of Discharge Diagnosis at Time of Discharge Sepsis-resolving C. difficile most likely secondary to antibiotic use of Cipro as an outpatient History of A. fib flutter Hypertension Procedures XRay, CTs & MRIs PROCEDURE: CT ABDOMEN AND PELVIS WITH CONTRAST ([id number]) INDICATIONS: llq pain, fever, wbc 17k TECHNIQUE: After the administration of intravenous contrast, 5 mm thick sections acquired from the diaphragm to the symphysis. 5 mm coronal and sagittal reformats were acquired. For radiation dose reduction, the following was used: automated exposure control, adjustment of mA and/or kV according to patient size. COMPARISON: None. FINDINGS: Image quality: Excellent. ABDOMEN: Lung bases: Lung bases are clear. Heart size is normal. Postsurgical changes compatible prior CABG procedure noted. Mitral annulus calcifications are noted. Solid organs: Liver and spleen are normal in size and enhancement. A few, very small, locules of air are noted in the liver (series 2, image 15; series 2, image 10-11. Is not clear whether the air locules are within the portal venous system or the biliary system. Gallbladder is contracted. Biliary system is non dilated. Pancreas enhances normally. No adrenal nodules. Kidneys demonstrate normal size and enhancement, without hydronephrosis. Small right renal cyst is noted. Peritoneum and bowel: Small hiatal hernia is noted. Short segment, circumferential wall thickening involving the distal transverse colon mainly proximal to the splenic flexure is noted. Mild stranding is noted in the mesocolon in the region of transverse colon wall thickening. No free fluid or air. The appendix is normal. Nodes and vessels: No retroperitoneal or mesenteric adenopathy by size criteria. Aorta and inferior vena cava are normal in size. Scattered atherosclerotic calcifications are noted in the abdominal and pelvic vasculature. Miscellaneous: No ventral hernias. PELVIS: Genitourinary: Bladder wall thickness is normal. Miscellaneous: No inguinal hernias or adenopathy. Bones: No suspicious bony lesions. No vertebral body compression fractures. IMPRESSION: 1. Short segment, circumferential wall thickening with adjacent mesenteric inflammation involving the distal transverse colon. Findings compatible with nonspecific colitis. Differential diagnosis includes infectious/inflammatory, ischemic and neoplastic etiologies. 2. A few, very small, locules of air in the liver which may localize to the biliary or portal venous systems. 3. Small hiatal hernia. 4. Findings telephoned to Dr. Pa Novoa on 05/07/2016 at 1417 hrs. Dictated by: Vy Menendez MD, PhD on 05/07/2016 at 14:21 Approved by: Vy Menendez MD, PhD on 05/07/2016 at 14:21 ECG 12 Lead Pending at the time of this dictation Brief History Sepsis most likely secondary to C. difficile infection from antibiotic use. Hospital Course 76-year-old male with acute abdominal pain with diarrhea and colitis on CT scan , present on admission. Patient was admitted to the hospital for sepsis. Patient's white blood cell count on admission was 14.4. Patient was immediately started on Zosyn and blood cultures were taken and found to be negative 2 days. Gen. surgery was consulted and felt that the colitis found on abdominal CT scan was not surgical and recommended treating the patient with antibiotics and checking stool cultures and lactic acid. Patient's lactic acid was within normal limits at 1.7 however patient was found to be positive for C. difficile. The C. difficile is most likely secondary to ten-day use of Cipro for a recent UTI. The patient was started on oral vancomycin 125 mg by mouth 4 times a day. The patient responded well to treatment and today on discharge the patient's white count has now corrected to normal limits of 7.1. While the patient has been in the hospital it was noted that his blood pressures have been running low and he has not been taking his amlodipine nor his lisinopril. The patient's atenolol has been decreased to 50 mg daily. The patient was instructed to reduce his atenolol to 50 mg daily and to continue to monitor his blood pressure. Patient was instructed that if his blood pressure increases and his systolic blood pressure is over 150 or his diastolic was over 90 then he should resume taking 100 mg daily atenolol. However the patient was instructed that he should follow-up with his primary care for further medical management of his blood pressure. Patient will be discharged home to complete a ten-day course of vancomycin 125 mg 4 times a day. Patient was also on short-acting to continue his follow-ups with the Coumadin clinic however he was instructed to visit them more often for closer monitoring since he is taking antibiotics currently. Exam Vital Signs (Last) Date Time Temp Pulse Resp B/P Pulse Ox O2 Delivery O2 Flow Rate FiO2 05/09/16 09:46 89 05/09/16 05:30 36.6 20 115/52 95 Room Air Exam Physical Exam: GEN: Patient was awake, alert, responding appropriately to questions HEENT: PERRLA, EOMI, Neck soft supple, trachea midline, nomocephalic/atraumatic CV: +S1/S2, RRR, positive systolic murmur secondary to valve replacement Respiratory: CTAB, no wheezes, rales, rhonchi GI: +bowel sounds x4, soft, compressible, non TTP EXT: no c/c/e Neuro: CN II-XII grossly intact Psych: mood and affect were appropriate Laboratory Tests 72 Hours Test 05/07/16 15:13 05/07/16 16:17 05/07/16 21:13 05/08/16 09:30 Hold Urine Received (Received) Urine Color Yellow (YELLOW) Urine Appearance Clear (CLEAR,HAZY) Urine pH 5.5 (5.0-8.0) Urine Specific [place] 1.010 (1.003-1.035) Urine Protein Negativemg/dL (NEG,TRACE) Urine Glucose (UA) Negativemg/dL (NEGATIVE) Urine Ketones Negativemg/dL (NEGATIVE) Urine Occult Blood Moderate (NEGATIVE) Urine Nitrite Negative (NEGATIVE) Urine Bilirubin Negative (NEGATIVE) Urine Urobilinogen Normalmg/dL (NORMAL) Urine Leukocyte Esterase Negative (NEGATIVE) Urine RBC 0-2/hpf (0-2) Urine WBC 0-5/hpf (0-5) Urine Epithelial Cells Few/hpf (NONE-MOD) Urine Crystals None seen (NONE SEEN) Urine Bacteria Few/hpf (NONE-FEW) Urine Hyaline Casts None/lpf (NONE) Urine Granular Casts None seen (NONE SEEN) Urine Waxy Casts None seen (NONE SEEN) Urine Red Blood Cell Casts None seen (NONE SEEN) Urine White Blood Cell Casts None seen (NONE SEEN) Urine Mucus None seen (None Seen) Urine Trichomonas None seen (NONE SEEN) Urine Yeast None (NONE SEEN) Urinalysis Comment None Urine Culture Reflexed Not indicated White Blood Count 14.4th/mm3 (3.8-10.1) 10.8th/mm3 (3.8-10.1) Red Blood Count 4.44mil/mm3 (4.40-5.80) 4.22mil/mm3 (4.40-5.80) Hemoglobin 13.6g/dL (13.8-17.2) 13.0g/dL (13.8-17.2) Hematocrit 41.9% (41.0-50.0) 39.7% (41.0-50.0) Mean Corpuscular Volume 94.4fL (81-100) 94.1fL (81-100) Mean Corpuscular Hemoglobin 30.6pg (27.0-35.0) 30.8pg (27.0-35.0) Mean Corpuscular Hemoglobin Concent 32.5% (32.0-37.0) 32.7% (32.0-37.0) Red Cell Distribution Width 13.4% (12.3-15.4) 13.1% (12.3-15.4) Platelet Count 174bil/L (150-400) 143bil/L (150-400) Neutrophils (%) (Auto) 79.8% (40-74) 83.2% (40-74) Lymphocytes (%) (Auto) 10.4% (14-46) 8.8% (14-46) Monocytes (%) (Auto) 9.1% (4-12) 7.4% (4-12) Eosinophils (%) (Auto) 0.2% (0-5) 0.3% (0-5) Basophils (%) (Auto) 0.1% (0-3) 0.1% (0-3) Prothrombin Time 17.1sec (8.1-12.5) 15.7sec (8.1-12.5) Prothromb Time International Ratio 1.58ratio 1.46ratio Sodium Level 135mEq/L (134-144) 139mEq/L (134-144) Potassium Level 3.7mEq/L (3.5-5.2) 3.3mEq/L (3.5-5.2) Chloride Level 98mEq/L (97-108) 101mEq/L (97-108) Carbon Dioxide Level 24mmol/L (18-29) 23mmol/L (18-29) Blood Urea Nitrogen 20mg/dL (8-27) 12mg/dL (8-27) Creatinine 1.06mg/dL (0.76-1.27) 0.69mg/dL (0.76-1.27) Estimat Glomerular Filtration Rate 72mL/min (>59) 118mL/min (>59) Glucose Level 156mg/dL (60-99) 161mg/dL (60-99) Lactic Acid Level 1.7mmol/L (0.4-2.0) Calcium Level 8.3mg/dL (8.5-10.1) 7.6mg/dL (8.5-10.1) Total Bilirubin 0.8mg/dL (0.0-1.2) 0.6mg/dL (0.0-1.2) Aspartate Amino Transf (AST/SGOT) 29U/L (0-50) 23U/L (0-50) Alanine Aminotransferase (ALT/SGPT) 45U/L (0-44) 34U/L (0-44) Alkaline Phosphatase 78U/L (25-160) 68U/L (25-160) Troponin T 0.010ug/L (0.0-0.011) < 0.010ug/L (0.0-0.011) Total Protein 6.7g/dL (6.4-8.4) 5.5g/dL (6.4-8.4) Albumin 3.6g/dL (3.4-5.0) 3.4g/dL (3.4-5.0) Test 05/09/16 06:31 White Blood Count 7.1th/mm3 (3.8-10.1) Red Blood Count 4.27mil/mm3 (4.40-5.80) Hemoglobin 13.3g/dL (13.8-17.2) Hematocrit 40.2% (41.0-50.0) Mean Corpuscular Volume 94.1fL (81-100) Mean Corpuscular Hemoglobin 31.1pg (27.0-35.0) Mean Corpuscular Hemoglobin Concent 33.1% (32.0-37.0) Red Cell Distribution Width 13.1% (12.3-15.4) Platelet Count 122bil/L (150-400) Neutrophils (%) (Auto) 71.6% (40-74) Lymphocytes (%) (Auto) 13.6% (14-46) Monocytes (%) (Auto) 13.9% (4-12) Eosinophils (%) (Auto) 0.7% (0-5) Basophils (%) (Auto) 0.1% (0-3) Prothrombin Time 15.7sec (8.1-12.5) Prothromb Time International Ratio 1.46ratio Sodium Level 139mEq/L (134-144) Potassium Level 3.5mEq/L (3.5-5.2) Chloride Level 105mEq/L (97-108) Carbon Dioxide Level 24mmol/L (18-29) Blood Urea Nitrogen 10mg/dL (8-27) Creatinine 0.67mg/dL (0.76-1.27) Estimat Glomerular Filtration Rate 122mL/min (>59) Glucose Level 122mg/dL (60-99) Calcium Level 7.8mg/dL (8.5-10.1) Total Bilirubin 0.5mg/dL (0.0-1.2) Aspartate Amino Transf (AST/SGOT) 28U/L (0-50) Alanine Aminotransferase (ALT/SGPT) 34U/L (0-44) Alkaline Phosphatase 62U/L (25-160) Total Protein 5.8g/dL (6.4-8.4) Albumin 3.3g/dL (3.4-5.0) Test 05/07/16 15:13 05/07/16 16:17 05/07/16 21:13 05/08/16 09:30 Hold Urine Received (Received) Urine Color Yellow (YELLOW) Urine Appearance Clear (CLEAR,HAZY) Urine pH 5.5 (5.0-8.0) Urine Specific [place] 1.010 (1.003-1.035) Urine Protein Negativemg/dL (NEG,TRACE) Urine Glucose (UA) Negativemg/dL (NEGATIVE) Urine Ketones Negativemg/dL (NEGATIVE) Urine Occult Blood Moderate (NEGATIVE) Urine Nitrite Negative (NEGATIVE) Urine Bilirubin Negative (NEGATIVE) Urine Urobilinogen Normalmg/dL (NORMAL) Urine Leukocyte Esterase Negative (NEGATIVE) Urine RBC 0-2/hpf (0-2) Urine WBC 0-5/hpf (0-5) Urine Epithelial Cells Few/hpf (NONE-MOD) Urine Crystals None seen (NONE SEEN) Urine Bacteria Few/hpf (NONE-FEW) Urine Hyaline Casts None/lpf (NONE) Urine Granular Casts None seen (NONE SEEN) Urine Waxy Casts None seen (NONE SEEN) Urine Red Blood Cell Casts None seen (NONE SEEN) Urine White Blood Cell Casts None seen (NONE SEEN) Urine Mucus None seen (None Seen) Urine Trichomonas None seen (NONE SEEN) Urine Yeast None (NONE SEEN) Urinalysis Comment None Urine Culture Reflexed Not indicated Lactic Acid Level 1.7mmol/L (0.4-2.0) Troponin T < 0.010ug/L (0.0-0.011) Test 05/09/16 06:31 White Blood Count 7.1th/mm3 (3.8-10.1) Red Blood Count 4.27mil/mm3 (4.40-5.80) Hemoglobin 13.3g/dL (13.8-17.2) Hematocrit 40.2% (41.0-50.0) Mean Corpuscular Volume 94.1fL (81-100) Mean Corpuscular Hemoglobin 31.1pg (27.0-35.0) Mean Corpuscular Hemoglobin Concent 33.1% (32.0-37.0) Red Cell Distribution Width 13.1% (12.3-15.4) Platelet Count 122bil/L (150-400) Neutrophils (%) (Auto) 71.6% (40-74) Lymphocytes (%) (Auto) 13.6% (14-46) Monocytes (%) (Auto) 13.9% (4-12) Eosinophils (%) (Auto) 0.7% (0-5) Basophils (%) (Auto) 0.1% (0-3) Prothrombin Time 15.7sec (8.1-12.5) Prothromb Time International Ratio 1.46ratio Sodium Level 139mEq/L (134-144) Potassium Level 3.5mEq/L (3.5-5.2) Chloride Level 105mEq/L (97-108) Carbon Dioxide Level 24mmol/L (18-29) Blood Urea Nitrogen 10mg/dL (8-27) Creatinine 0.67mg/dL (0.76-1.27) Estimat Glomerular Filtration Rate 122mL/min (>59) Glucose Level 122mg/dL (60-99) Calcium Level 7.8mg/dL (8.5-10.1) Total Bilirubin 0.5mg/dL (0.0-1.2) Aspartate Amino Transf (AST/SGOT) 28U/L (0-50) Alanine Aminotransferase (ALT/SGPT) 34U/L (0-44) Alkaline Phosphatase 62U/L (25-160) Total Protein 5.8g/dL (6.4-8.4) Albumin 3.3g/dL (3.4-5.0) Microbiology Results Laboratory Tests Test 05/09/16 06:31 White Blood Count 7.1th/mm3 (3.8-10.1) Red Blood Count 4.27mil/mm3 (4.40-5.80) Hemoglobin 13.3g/dL (13.8-17.2) Hematocrit 40.2% (41.0-50.0) Mean Corpuscular Volume 94.1fL (81-100) Mean Corpuscular Hemoglobin 31.1pg (27.0-35.0) Mean Corpuscular Hemoglobin Concent 33.1% (32.0-37.0) Red Cell Distribution Width 13.1% (12.3-15.4) Platelet Count 122bil/L (150-400) Neutrophils (%) (Auto) 71.6% (40-74) Lymphocytes (%) (Auto) 13.6% (14-46) Monocytes (%) (Auto) 13.9% (4-12) Eosinophils (%) (Auto) 0.7% (0-5) Basophils (%) (Auto) 0.1% (0-3) Prothrombin Time 15.7sec (8.1-12.5) Prothromb Time International Ratio 1.46ratio Sodium Level 139mEq/L (134-144) Potassium Level 3.5mEq/L (3.5-5.2) Chloride Level 105mEq/L (97-108) Carbon Dioxide Level 24mmol/L (18-29) Blood Urea Nitrogen 10mg/dL (8-27) Creatinine 0.67mg/dL (0.76-1.27) Estimat Glomerular Filtration Rate 122mL/min (>59) Glucose Level 122mg/dL (60-99) Calcium Level 7.8mg/dL (8.5-10.1) Total Bilirubin 0.5mg/dL (0.0-1.2) Aspartate Amino Transf (AST/SGOT) 28U/L (0-50) Alanine Aminotransferase (ALT/SGPT) 34U/L (0-44) Alkaline Phosphatase 62U/L (25-160) Total Protein 5.8g/dL (6.4-8.4) Albumin 3.3g/dL (3.4-5.0) Microbiology 05/07/16 Blood Culture - Preliminary, Resulted NO GROWTH AFTER 24 HOURS 05/08/16 Campylobacter (PCR) - Final, Resulted Not Detected 05/08/16 Clostridium difficile Toxin A&B (M) - Final, Resulted Pos For Cdif Toxin 05/08/16 Plesiomonas shigelloides (PCR) - Final, Resulted Not Detected 05/08/16 Salmonella (PCR)(LIA) - Final, Resulted Not Detected 05/08/16 Yersinia enterocolitica (PCR) - Final, Resulted Not Detected 05/08/16 Vibrio Species (PCR) - Final, Resulted Not Detected 05/08/16 Vibrio Cholerae (PCR) - Final, Resulted Not Detected 05/08/16 Enteroaggregative E. coli (PCR) - Final, Resulted Not Detected 05/08/16 Enteropathogenic E. coli (PCR), Resulted Pending 05/08/16 Enterotoxigenic E. coli (PCR) - Final, Resulted Not Detected 05/08/16 E. coli Shiga-like Toxin (PCR) - Final, Resulted Not Detected 05/08/16 Escherichia coli 0157 (PCR) - Final, Resulted Not Detected 05/08/16 Enteroinvasive E. coli/Shigella PCR - Final, Resulted Not Detected 05/08/16 Cryptosporidium (PCR) - Final, Resulted Not Detected 05/08/16 Cyclospora cayetanensis (PCR) - Final, Resulted Not Detected 05/08/16 Entamoeba histolytica (PCR) - Final, Resulted Not Detected 05/08/16 Giardia lamblia (PCR) - Final, Resulted Not Detected 05/08/16 Adenovirus Type F 40/41 (PCR) - Final, Resulted Not Detected 05/08/16 Astrovirus (PCR) - Final, Resulted Not Detected 05/08/16 Norovirus (PCR) - Final, Resulted Not Detected 05/08/16 Rotavirus A (PCR) - Final, Resulted Not Detected 05/08/16 Sapovirus I/II/IV/V (PCR) - Final, Resulted Discharge Medications Discharge Medications Aspirin (Aspirin) 81 Mg Tablet 81 MG PO HS (Reported) Atenolol (Atenolol) 50 Mg Tablet 100 MG PO DAILY Prescribed by: KEIKO MOYER DO Atorvastatin Calcium (Atorvastatin Calcium) 40 Mg Tablet 80 MG PO HS (Reported) Cholecalciferol (Vitamin D3) (Vitamin D3) 2,000 Unit Capsule 2,000 UNIT PO DAILY (Reported) Folic Acid (Folic Acid) 1 Mg Tablet 1 MG PO DAILY (Reported) Gabapentin (Gabapentin) 600 Mg Tablet 600 MG PO TID (Reported) Newborn-3/Dha/Epa/Fish Oil (Fish Oil 1,000 mg Softgel) 1 Each Capsule 1 EACH PO DAILY (Reported) Vancomycin (Vancomycin) 125 Mg Capsule 125 MG PO Q6 Prescribed by: KEIKO MOYER DO Warfarin Sodium (Warfarin Sodium) 4 Mg Tablet 4 MG PO ,,,,, (Reported ) Warfarin Sodium (Warfarin Sodium) 4 Mg Tablet 2 MG PO WEDNESDAYS (Reported) As needed Clonazepam (Clonazepam) 0.5 Mg Tablet 0.5 MG PO DIRECTED PRN PRN For Anxiety (Reported) Hydrocodone-Acetaminophen 5-325 mg (Hydrocodone-Acetaminophen 5-325 mg) 1 Each Tablet 0.5-1 TABLET PO Q12H PRN PRN For Pain (Reported) Additional med instructions Please take only 50 mg of the atenolol daily. Please stop taking amlodipine and lisinopril as her blood pressures have been running low while in the hospital. Continue to monitor your blood pressures at home and if your systolic blood pressure (the top number) is greater than 150 or if your diastolic blood pressure (bottom number) is greater than 90 increase your atenolol back to 100 mg daily. Please follow-up with your primary care physician for further instructions for blood pressure medication management. Followup Plan Discharge Diet: No restrictions, Heart Healthy Discharge Activity: No restrictions Follow-up with PCP in: 1 week Time spent Greater than 35 minutes copies to: Demetris Rendon MD, Precious L DO May 09, 2016 11:32
--- NOTE | 2016-05-09 12:30 | NUR ---
Discharge Pt DC home via private vehicle. Pt has strong understanding of his home medications and doses and understand he is to take next Vancomycin tablet at 1430 and that his Atenolol dose was lowered to 50mg and withheld today d/t low BP. He has an appointment previously scheduled for Wednesday with his PCP. Education provided to both the pt and his regarding C.Diff precautions, pt is understanding. Morning antibiotic completed prior to DCing.
== END 2016-05-09 12:38 | disposition home or self-care (01) | DRG 373 ==
LOC: SED 11:14 → MOC 16:25 → OSC 05-08 00:55
PROVIDERS: ADMIT Specialist; ATTEND Specialist
DX: A04.7 Enterocolitis due to Clostridium difficile (principal); I10 Essential (primary) hypertension; Z79.01 Long term (current) use of anticoagulants; I25.10 Atherosclerotic heart disease of native coronary artery without angina pectoris; E78.5 Hyperlipidemia, unspecified; Z87.891 Personal history of nicotine dependence; I48.91 Unspecified atrial fibrillation

== ENCOUNTER 2016-10-12 10:41 | Emergency (ER) | payer MEDICARE ==
[~2016-10-12] VITALS: Ht 175.3 cm; Wt 86.3 kg
[~2016-10-12 10:41] MED LIST changes: -ATEN100T PO; +ATEN50TA PO; -CIPR-231 PO; +KLO5T PO; -LISI40TA PO; +VANC125C3 PO
[2016-10-12 11:02] VITALS: BP 169/80; PULSE 63; RESP 18; O2SAT 98
[2016-10-12] MEDS ORDERED: Tetracaine 0.5% 4 mL Ophthalmic Solution RIGHT_EYE ONE (11:25)
[2016-10-12] MEDS ORDERED: Fluorescein 0.6 mg Ophthalmic Strip RIGHT_EYE ONE (11:25)
--- NOTE | 2016-10-12 12:01 | ED.REPORT ---
HPI-Ear Pain/Problem/FB Date of Service Oct 12, 2016 ED Provider: Toni Saez PA-C Juaquin is a 76-year-old male with a history of hypertension, CAD presented with a chief complaint of right eye pain. He reports noticing irritation in his right eye earlier today, which increased the pain after rubbing his eye. He attempted to flush the eye without success. At presentation he complains of redness, pain, foreign body sensation, watery discharge, rhinorrhea. He coming from outside approximately one hour prior to noticing the sensation. Denies reduced visual acuity, purulent discharge. Admit seasonal allergies. Denies recent grinding, hammering, power tool use. Denies sick contacts, contact lens use. Nursing Notes Stated Complaint: OBJECT IN RT EYE Chief Complaint: Eye Nursing Notes Reviewed: Yes Allergies: Coded Allergies: rosuvastatin (Verified Adverse Reaction, Intermediate, MUSCLE PAIN, ) Scheduled Aspirin (Aspirin) 81 Mg Tablet 81 MG PO HS Atenolol (Atenolol) 50 Mg Tablet 100 MG PO DAILY Atorvastatin Calcium (Atorvastatin Calcium) 40 Mg Tablet 80 MG PO HS Cholecalciferol (Vitamin D3) (Vitamin D3) 2,000 Unit Capsule 2,000 UNIT PO DAILY Erythromycin Ophth Oint (Erythromycin Ophth Oint) 3.5 Gm Oint...g. 1 APPL RIGHT_ EYE TID Folic Acid (Folic Acid) 1 Mg Tablet 1 MG PO DAILY Gabapentin (Gabapentin) 600 Mg Tablet 600 MG PO TID [place]-3/Dha/Epa/Fish Oil (Fish Oil 1,000 mg Softgel) 1 Each Capsule 1 EACH PO DAILY Vancomycin (Vancomycin) 125 Mg Capsule 125 MG PO Q6 Warfarin Sodium (Warfarin Sodium) 4 Mg Tablet 4 MG PO ,,,,, Warfarin Sodium (Warfarin Sodium) 4 Mg Tablet 2 MG PO WEDNESDAYS Scheduled PRN Clonazepam (Clonazepam) 0.5 Mg Tablet 0.5 MG PO DIRECTED PRN PRN For Anxiety Hydrocodone-Acetaminophen 5-325 mg (Hydrocodone-Acetaminophen 5-325 mg) 1 Each Tablet 0.5-1 TABLET PO Q12H PRN PRN For Pain General Time Seen by MD: 11:22 Chief Complaint Ear problem right Past Medical History Past Medical History Melanoma, removed 12 years ago Aflutter Essential Hypertension Bilateral Carotid Bruits H/O Aortic Valve Replacement Neuropathy Hyperlipidemia Hypertension Reports: Coronary artery disease, Hyperlipidemia, Hypertension Reports: Atrial fibrillation Past Surgical History coronary artery bypass surgery x4 and aortic valve replacement in 2000. Family History noncontributory Smoking History Former Smoker Social History Alcohol Use: 1-3 per day Drug Use: Denies drug use Other Social History: Good social support, , Local resident Ambulatory Status Independent Review of Systems Negative unless stated otherwise in history of present illness Physical Exam General: Well appearing, well developed, well nourished, no acute distress. Head: Atraumatic, normocephalic. Eyes: Right conjunctiva injected. Small foreign body is noted under the lower lateral eyelid. Painless PERRL, EOMI. Negative periorbital edema. Slight clear discharge. Anterior chamber clear. Slit lamp examination with fluorescein reveals no areas of focal uptake. ENT: Voice clear, hearing grossly intact. Respiratory: No respiratory distress, no increased work of breathing. Speaks in complete sentences. Skin: Warm and dry. Neurological: Grossly nonfocal. Psychological: alert and oriented. Speech appropriate, linear and logical. Behavior appropriate. Initial Vital Signs Vital Signs (First) Date Time Temp Pulse Resp B/P Pulse Ox O2 Delivery O2 Flow Rate FiO2 10/12/16 11:02 36.8 63 18 169/80 98 Room Air Elevated blood pressure Re-Eval/Medical Decision Med Decision/Clinical Course 76-year-old man presenting with chief complaint of right eye pain. Began afterhe had irritation and rubbing his eye earlier today. 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 Physical examination reveals an injected eye, PERRLA, EOMI, anterior chamber clear. Small foreign body is noted in the right lateral lower eyelid. No areas of focal uptake on fluorescein examination. Visual acuity is 20/20 bilaterally I had difficulty removing the foreign body with a cotton swab. Discussed the case with Dr. Lowe, who met with and examined the patient. She was successful in removing it with a hypodermic needle. This produced a small amount of bleeding. Prescribed erythromycin ointment, advised to not touch the eye as much as possible. Provided emergency return precautions. Patient verbalized understanding of and consented to the plan. Discharge & Departure Primary Impression: Foreign body of eyelid, right Disposition: Home Discharge Condition All VS Reviewed: Yes Additional Instructions: Evaluation for right eye pain in the emergency department includes interview and physical examination. We located a foreign body in her right lower eyelid, which was removed. This was quite difficult and you experienced a small amount of bleeding which should resolve quickly. Avoid touching the eye as much as possible. I will write you a prescription for erythromycin ointment, to be applied 3 times a day for 2-3 days. This both works as an antibiotic to prevent infection and as a soothing lubricant. The pain is best treated with 400 mg of ibuprofen (Advil, Motrin) every 6 hours , or 1000 mg of acetaminophen (Tylenol) every 6 hours. These drugs can be taken at the same time for more severe pain. Follow-up with your primary care provider if any further concerns. Return emergency Department for any new or worsening symptoms including discharge, increasing pain, blurred vision. Referrals: Demetris Rendon MD (PCP) EDSupervising Provider for APC: Ana Jones MD Attending Statement Patient seen and examined with Mr. Saez. No evidence of corneal abrasion on slit lamp exam. On careful digital exam there is a small particle on the lateral inner portion of the lower lid but clearly is causing his discomfort. Mr. Saez was unable to dislodge this with a Q-tip. I made attempts with a Q- tip and ended up using the tip of a 16-gauge needle to dislodge this embedded small particle. I am unsure what it was, looks like it may have been the very tip of a plant thorn Agree with assessment and plan as above copies to: Demetris Rendon MD, Seth PA-C Oct 12, 2016 12:01 Ana Jones MD Oct 12, 2016 15:16
[2016-10-12] MEDS ORDERED: ERYT1OIN7 RIGHT_EYE (12:59)
[2016-10-12 13:05] VITALS: BP 186/79; PULSE 59; RESP 16; O2SAT 97
== END 2016-10-12 13:06 | disposition home or self-care (01) ==
LOC: SED 10:41
DX: T15.81XA Foreign body in other and multiple parts of external eye, right eye, initial encounter (principal); X58.XXXA Exposure to other specified factors, initial encounter; Y92.9 Unspecified place or not applicable; Y93.89 Activity, other specified; Y99.8 Other external cause status; I10 Essential (primary) hypertension; I25.10 Atherosclerotic heart disease of native coronary artery without angina pectoris; J30.2 Other seasonal allergic rhinitis; E78.5 Hyperlipidemia, unspecified; I48.91 Unspecified atrial fibrillation; Z95.1 Presence of aortocoronary bypass graft; Z95.2 Presence of prosthetic heart valve; Z87.891 Personal history of nicotine dependence; Z79.82 Long term (current) use of aspirin; Z79.01 Long term (current) use of anticoagulants; Z88.8 Allergy status to other drugs, medicaments and biological substances